=== PATIENT | female | born 1995 | race Hispanic/Latino ===

== ENCOUNTER 2017-09-25 09:19 | Emergency (ER) | payer SELFPAY ==
--- NOTE | 2017-09-25 10:11 | EDPHYS ---
Physician Documentation [facility] Name: Keesha Lambert Age: 22 yrs Sex: Female : 1995 Arrival Date: 09/25/2017 Time: 09:22 Bed 15 Private MD: ED Physician Alli Vasques HPI: 09/25 09:53 This 22 yrs old Female presents to ER via Ambulatory with complaints of snw Dizziness, Vomiting. 09:53 The patient presents with lightheadedness. Onset: The symptoms/episode began/occurred snw gradually, and became persistent. Context: occurred at home, occurred while the patient was randomly. just prior to the episode the patient experienced no apparent symptoms. Modifying factors: The symptoms are alleviated by nothing, the symptoms are aggravated by nausea and vomiting, position change. pt thinks she is . Associated signs and symptoms: Pertinent positives: vomiting. Severity of symptoms: At their worst the symptoms were moderate. The patient has not experienced similar symptoms in the past. The patient has not recently seen a physician. lmp 2 months ago. MARBLEIZER: 09:39 LMP 07/27/2017 lk1 09:40 0, Full Term 0, 0 lk1 Historical: - Allergies: 09:38 No Known Allergies; lk1 - PMHx: 09:38 None; lk1 - PSHx: 09:38 None; lk1 - Immunization history:: Adult Immunizations up to date. - Social history:: Smoking status: Patient/guardian denies using tobacco. ROS: 09:53 Eyes: Negative for injury, pain, redness, and discharge, ENT: Negative for injury, snw pain, and discharge, Neck: Negative for injury, pain, and swelling, Cardiovascular: Negative for chest pain, palpitations, and edema, Respiratory: Negative for shortness of breath, cough, wheezing, and pleuritic chest pain. 09:53 Back: Negative for injury and pain, : Negative for injury, bleeding, discharge, and swelling, MS/Extremity: Negative for injury and deformity, Skin: Negative for injury, rash, and discoloration. 09:53 Constitutional: Positive for body aches, malaise, poor PO intake. 09:53 Abdomen/GI: Positive for nausea and vomiting. 09:53 Neuro: Positive for dizziness. Exam: 09:56 Constitutional: This is a well developed, well nourished patient who is awake, alert, snw and in no acute distress. Head/Face: Normocephalic, atraumatic. Eyes: Pupils equal round and reactive to light, extra-ocular motions intact. Lids and lashes normal. Conjunctiva and sclera are non-icteric and not injected. Cornea within normal limits. Periorbital areas with no swelling, redness, or edema. ENT: Nares patent. No nasal discharge, no septal abnormalities noted. Tympanic membranes are normal and external auditory canals are clear. Oropharynx with no redness, swelling, or masses, exudates, or evidence of obstruction, uvula midline. Mucous membranes moist. Neck: Trachea midline, no thyromegaly or masses palpated, and no cervical lymphadenopathy. Supple, full range of motion without nuchal rigidity, or vertebral point tenderness. No Meningismus. Chest/axilla: Normal chest wall appearance and motion. Nontender with no deformity. No lesions are appreciated. Cardiovascular: Regular rate and rhythm with a normal S1 and S2. No gallops, murmurs, or rubs. Normal PMI, no JVD. No pulse deficits. Respiratory: Lungs have equal breath sounds bilaterally, clear to auscultation and percussion. No rales, rhonchi or wheezes noted. No increased work of breathing, no retractions or nasal flaring. 09:56 Back: No spinal tenderness. No costovertebral tenderness. Full range of motion. Skin: Warm, dry with normal turgor. Normal color with no rashes, no lesions, and no evidence of cellulitis. MS/ Extremity: Pulses equal, no cyanosis. Neurovascular intact. Full, normal range of motion. Psych: Awake, alert, with orientation to person, place and time. Behavior, mood, and affect are within normal limits. 09:56 Abdomen/GI: Inspection: abdomen appears normal, Bowel sounds: normal, Palpation: abdomen is soft and non-tender, in all quadrants. 09:56 Neuro: Orientation: no acute changes, Mentation: is normal, Memory: is normal, Cranial nerves: grossly normal, Cerebellar function: is grossly normal, Motor: is normal, seizure activity, is not displayed by the patient. Vital Signs: 09:39 BP 140 / 94; Pulse 78; Resp 14; Temp 98.0(TE); Pulse Ox 100% on R/A; Weight 56.25 kg lk1 (R); Height 4 ft. 11 in. (150 cm) (R); Pain 0/10; 09:39 Body Mass Index 25.00 (56.25 kg, 150 cm) lk1 MDM: 09:43 Patient medically screened. snw 10:11 Data reviewed: vital signs, nurses notes. Data interpreted: Pulse oximetry: on room air snw is 100 %. Interpretation: normal. Counseling: I had a detailed discussion with the patient and/or guardian regarding: the historical points, exam findings, and any diagnostic results supporting the discharge/admit diagnosis, the presence of at least one elevated blood pressure reading (>120/80) during this emergency department visit, the need for outpatient follow up, to return to the emergency department if symptoms worsen or persist or if there are any questions or concerns that arise at home. Special discussion: I have referred the patient to see his PCP for further evaluation of high blood pressure. Based on the history and exam findings, there is no indication for further emergent testing or inpatient evaluation. I discussed with the patient/guardian the need to see the OB Gyne specialist for further evaluation of the symptoms. I discussed with the patient/guardian the need to see the primary care provider for further evaluation of the symptoms. 09/25 09:43 Order name: Urine Culture snw 09/25 09:43 Order name: Urine Microscopic Only; Complete Time: 10:27 snw 09/25 09:43 Order name: Urine Test (obtain specimen); Complete Time: 09:48 snw 09/25 09:43 Order name: Urine Dipstick-Ancillary (obtain specimen); Complete Time: 09:48 snw 09/25 10:03 Order name: Urine Dipstick--Ancillary (enter results); Complete Time: 10:14 bd 09/25 10:03 Order name: Urine --Ancillary (enter results); Complete Time: 10:14 bd Administered Medications: No medications were administered Disposition: 09/26 07:48 Co-signature as Attending Physician, Alli Vasques MD Available for consultation at ps1 all times. . Disposition: 09/25/17 10:10 Discharged to Home. Impression: state. - Condition is Stable. - Discharge Instructions: Nausea and Vomiting, First Trimester of . - Medication Reconciliation Form, Thank You Letter, Antibiotic Education, Prescription Opioid Use form. - Follow up: Private Physician; When: 2 - 3 days; Reason: Recheck today's complaints, Continuance of care, Re-evaluation by your physician. Follow up: Emergency Department; When: As needed; Reason: Worsening of condition. Signatures: Dispatcher [employer] EDMS Desi Hall, DORIE POT PRESS OPERATOR-Jeraldw Chelsie Milligan RN RN Meme Sidhu RN RN lk1 Alli Vasques MD MD ps1
--- NOTE | 2017-09-25 10:11 | ER ---
Nurse's Notes [facility] Name: Keesha Lambert Age: 22 yrs Sex: Female : 1995 Arrival Date: 09/25/2017 Time: 09:22 Bed 15 Private MD: Diagnosis: state Presentation: 09/25 09:37 Presenting complaint: Friend states: "She has been dizzy and vomiting off and on. She lk1 hasn't had a period in 2 months and thinks she may be .". Transition of care: patient was not received from another setting of care. Onset of symptoms is unknown. Care prior to arrival: None. 09:37 Method Of Arrival: Ambulatory lk1 09:37 Acuity: BEBA 3 lk1 Triage Assessment: 09:39 General: Appears in no apparent distress. Behavior is calm, cooperative, appropriate lk1 for age. Pain: Denies pain. GI: Reports nausea, vomiting. 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 - Social history:: Smoking status: Patient/guardian denies using tobacco. Screenin:03 Abuse screen: Denies threats or abuse. Denies injuries from another. Nutritional ph screening: No deficits noted. Tuberculosis screening: No symptoms or risk factors identified. Fall Risk None identified. Assessment: 10:01 General: Appears in no apparent distress. comfortable, slender, well groomed, Behavior ph is calm, cooperative, appropriate for age, Denies fever. Pain: Denies pain. Neuro: Level of Consciousness is awake, alert, obeys commands, Oriented to person, place, time, situation, Reports dizziness. Cardiovascular: Capillary refill < 3 seconds Patient's skin is warm and dry. Respiratory: Airway is patent Respiratory effort is even, unlabored. GI: Abdomen is flat, non-distended, Bowel sounds present X 4 quads. Abd is soft and non tender X 4 quads. Reports nausea, vomiting, Patient currently denies abdominal pain, constipation, diarrhea. : Reports no menses x 2 months Patient is sexually active Method of control is none. Derm: Skin is intact, is healthy with good turgor, Skin is pink, warm \\T\\ dry. Musculoskeletal: Circulation, motion, and sensation intact. Range of motion: intact in all extremities. Vital Signs: 09:39 BP 140 / 94; Pulse 78; Resp 14; Temp 98.0(TE); Pulse Ox 100% on R/A; Weight 56.25 kg lk1 (R); Height 4 ft. 11 in. (150 cm) (R); Pain 0/10; 09:39 Body Mass Index 25.00 (56.25 kg, 150 cm) lk1 ED Course: 09:22 Patient arrived in ED. as 09:33 Desi Hall F[facility]-C [facility] snw 09:33 Alli Vasques MD is Attending Physician. snw 09:38 Triage completed. lk1 09:40 Arm band placed on right wrist. lk1 09:48 Chelsie Milligan, RN is Primary Nurse. ph 10:04 Patient has correct armband on for positive identification. Bed in low position. Call ph light in reach. Side rails up X 1. Pulse ox on. NIBP on. 10:05 Urine collected: clean catch specimen, nisha colored. ph 10:55 No provider procedures requiring assistance completed. Patient did not have IV access ph during this emergency room visit. Administered Medications: No medications were administered Outcome: 10:10 Discharge ordered by . snw 10:56 Patient left the ED. ph 10:56 Discharged to home ambulatory, with family. ph 10:56 Condition: good 10:56 Discharge instructions given to patient, family, Instructed on discharge instructions, follow up and referral plans. Demonstrated understanding of instructions, follow-up care. Signatures: Desi Hall FNP-C QUOTATION CHECKER-Rupal Peraza as Chelsie Milligan, RN RN Meme Sidhu RN RN lk1
[2017-09-25 10:12] LABS: Urine Blood TRACE (NEG); Urine Glucose NEGATIVE (NEG); Urine Protein TRACE (NEG); Urine Specific Gravity >1.030 (1.005-1.030)
[2017-09-25 10:25] LABS: Urine Bacteria 20-50 /HPF (<20); Urine Culture Reflex Order NOT NEEDED; Urine Mucus MOD /HPF (NONE SEEN); Urine RBC <5 /HPF (NONE SEEN)
== END 2017-09-25 10:56 | disposition home or self-care (01) ==
LOC: ER 09:19
DX: O26.891 Other specified pregnancy related conditions, first trimester (principal); Z3A.00 Weeks of gestation of pregnancy not specified
CPT/HCPCS: 81003; 81015; 81025; 87086; 87088; 99283

== ENCOUNTER 2021-01-21 02:48 | Emergency (ER) | payer SELFPAY ==
--- OUTSIDE RECORDS SUMMARY | 2021-01-21 02:51 | XMS REPORT | Continuity of Care Document ---
:1995 Author Organization Formerly [facility] t Address [address] [place] [address] Care Team Providers Name Role Phone Dustin BRADY, R Primary Care Physician Nurse, Pob Immunization Attending Clinician Unavailable Wyatt Farah DO Attending Clinician Visit, Nurse Attending Clinician Unavailable Larisa Prieto Attending Clinician Advance Directives Directive Decision Effective Termination Comments Source Date Date Healthcare Agents on N/A [facility] ersity FileNameRelationshipHealthcare [facility] Agent Medical RelationshipCommunicationCuster Regional Hospital Care [phone] (Mobile) Problems Condition Condition Condition Status Onset Resolution Last Treating Co mments Source Name Details Category Date Date Treatment Clinician Date Encounter Encounter Disease Active Uni vers for for 06-22 [place] 00 Medical management management Br anch , , unspecifie unspecifie d type d type BMI BMI Disease Active 2018- Univers 28.0-28.9, 28.0-28.9, -11 it y of adult adult 00:00: [address] Research Research Disease Resolve 2017-062019-08-23 2019-08-23 Univers study study d 0-30 00:00:00 19:52:46 ity of patient patient 00:00: [address] Disease Resolve 2017-062018-06-22 2018-06-22 [facility] care and care and d 2-03 00:00:00 21:49:59 it y of examin[place] examin[place] of [place] of 00 Medical lactating lactating Bran ch mother mother Elevated Elevated Disease Resolve 2017-062018-05-14 2018-05-14 Univers blood blood d 0-29 00:00:00 23:41:54 ity of pressure pressure 00:00: [place] reading reading 00 Medical without without Branch diagnosis diagnosis of of hypertensi hypertensi on on 35 weeks 35 weeks Disease Resolve 2017-062018-05-14 2018-05-14 Univers gestation gestation d 0-29 00:00:00 23:42:11 ity of of of 00:00: [place] 00 [facility] Branch Headache Headache Disease Resolve 2017-062018-05-14 2018-05-14 Univers in in d 0-29 00:00:00 23:41:59 [place] of , , [place] antepartum antepartum 00 Me dical , third , third Branch trimester trimester Preeclamps Preeclamps Disease Resolve 2017-062018-05-14 2018-05-14 Univers ia, third ia, third d 0-29 00:00:00 23:42:02 [place] S/P S/P Disease Resolve 2017-062018-05-14 2018-05-14 Univers d 0-29 00:00:00 23:42:04 it y of section section 00:00: [place] 00 Medical Branch Liveborn Liveborn Disease Resolve 2017-062018-05-14 2018-05-14 Univers infant, , d 0-29 00:00:00 23:42:07 ity of born in born in 00:00: [facility], [facility], 00 [facility] delivered delivered Bran ch by by Abnormal Abnormal Disease Resolve 2018-05-14 2018-05-14 Univers maternal maternal d 8-21 00:00:00 23:41:57 it y of glucose glucose 00:00: [place] tolerance, tolerance, 00 Me dical antepartum antepartum Br anch Supervisio Supervisio Disease Resolve 2018-05-14 2018-05-14 Univers n of n of d 6-18 00:00:00 23:41:51 ity of high-risk high-risk 00:00: Shantal ospina [facility] with with Branch insufficie insufficie nt nt care care Allergies, Adverse Reactions, Alerts This patient has no known allergies or adverse reactions. Social History Social Habit Start Date Stop Date Quantity Comments Source Tobacco use and 2020-02-10 2020-02-10 Never used Universit y of exposure 00:00:00 00:00:00 [facility] Alcohol intake 2020-02-10 2020-02-10 Current University 00:00:00 00:00:00 non-drinker of [facility] alcohol Branch (finding) Sex Assigned At [birth year] Universit y of 00:00:00 00:00:00 [facility] Smoking Status Start Date Stop Date Source Never smoker [facility] Medications This patient has no known medications. Immunizations Ordered Filled Immunization Date Status Comments Sourc e Immunization Name Name SARS-COV-2 COVID-19 2020-10-15 Completed Unive rsity of PFIZER VACCINE 00:00:00 [facility] HPV9 2018-10-18 Completed University of 00:00:00 [facility] HPV9 2018-05-14 Completed University 00:00:00 [facility] HPV9 2018-04-11 Completed University of 00:00:00 [facility] TDAP 2018-02-19 Completed University of 00:00:00 [facility] PPD (TB) 2017-11-27 Completed University 00:00:00 [facility] Procedures Procedure Date / Time Performed Performing Clinician Sour e SARS-COV-2 COVID-19 2020-10-15 21:37:03 Doctor Unassigned, No [facility] [place] VACCINE,0.3ML,IM Name [facility] Branch (PFIZER) Plan of Care Planned Activity Planned Date Details Comments Source Future Scheduled 2028-02-20 DTaP,Tdap,and Td Univers ity [facility] Test 00:00:00 Vaccines (2 - Td) Medical Br anch [code = DTaP,Tdap,and Td Vaccines (2 - Td)] Future Scheduled 2022-08-22 Screening for University [facility] Test 00:00:00 malignant neoplasm of Medica l Branch cervix (procedure) [code = 843661450] Future Scheduled 2021-02-10 [facility] (Season Ended) [code = Medic al Branch INFLUENZA VACCINE (Season Ended)] Future Scheduled 2020-11-05 [facility] Vaccine (2 - Pfizer Medical Branch 2-dose series) [code = SARS-CoV-2 (COVID-19) Vaccine (2 - Pfizer 2-dose series)] Future Scheduled 2020-08-22 Screening for [facility] Test 00:00:00 Chlamydia trachomatis Medica l Branch (procedure) [code = 111775697] Future Scheduled 2015-08-16 [facility]atitis [facility]00 (procedure) [code = Medical Branch [id number]] Future Scheduled 2009 Depression screening Uni versity [facility] Test 00:00:00 (procedure) [code = Medical Branch [id number]] Future Scheduled 2007-08-16 MENINGOCOCCAL B [facility] Test 00:00:00 VACCINES (1 of 2 - Medical B ranch Risk Bexsero 2-dose series) [code = MENINGOCOCCAL B VACCINES (1 of 2 - Risk Bexsero 2-dose series)] Encounters Start End Encounter Admission Attending Care Care Encounter Source Date/Time Date/Time Type Type Clinicians Facility Department ID 2020-02-10 2020-02-10 Nurse Visit, [facility] [id number] 15:47:53 16:13:[facility] NAT[facility] SCIENCES PROFESS[facility] [id number] Nurse [facility] [id number] MATERNAL [id number] & CHILD 107 [facility] 2019-11-15 2019-11-15 Nurse Visit, [facility] [id number] 15:09:03 15:39:03 [facility] SCIENCES PROFESSOR [id number] Nurse REGIONAL [id number] MATERNAL [id number] & CHILD 107 [facility] 2019-08-23 2019-08-23 Office Davide [facility] [id number] 14:30:00 14:58:02 Visit Kathi Peres NATURAL SCIENCES PROFESSOR [id number] REGIONAL [id number] MATERNAL [id number] & CHILD 107 [facility] Results This patient has no known results.
[2021-01-21] MEDS ORDERED: MORPHINE 2 MG/ML SYR ONE (03:36)
[2021-01-21] MEDS ORDERED: NA CHLORIDE 0.9% 1,000 ML ONE (03:36)
[2021-01-21] MEDS ORDERED: ONDANSETRON 4 MG/2 ML VIAL ONE (03:36)
--- NOTE | 2021-01-21 04:51 | ER ---
Nurse's Notes [facility] Name: Keesha Lambert Age: 25 yrs Sex: Female : 1995 Arrival Date: 01/21/2021 Time: 02:52 Bed 12 Private MD: Diagnosis: Migraine, unspecified, not intractable, without status migrainosus Presentation: 01/21 03:00 Chief complaint: Patient states: has had a headache since yesterday has history of bb migraines. Coronavirus screen: At this time, the client does not indicate any symptoms associated with coronavirus-19. Ebola Screen: No symptoms or risks identified at this time. Initial Sepsis Screen: Does the patient meet any 2 criteria? No. Patient's initial sepsis screen is negative. Does the patient have a suspected source of infection? No. Patient's initial sepsis screen is negative. Risk Assessment: Do you want to hurt yourself or someone else? Patient reports no desire to harm self or others. Onset of symptoms was January 20, 2021. 03:00 Method Of Arrival: Ambulatory bb 03:00 Acuity: BEBA 4 bb Triage Assessment: 03:31 Headache History: The patient has had previous headaches. General: Appears in no bb apparent distress. uncomfortable, Behavior is calm, cooperative. Pain: Complains of pain in top of head Pain currently is 10 out of 10 on a pain scale. Pain began 1 day ago. Also complains of nausea. Neuro: Level of Consciousness is awake, alert, obeys commands, Oriented to person, place, time, situation. Cardiovascular: Capillary refill < 3 seconds Patient's skin is warm and dry. Respiratory: Respiratory effort is even, unlabored. Derm: Skin is pink, warm \T\ dry. Musculoskeletal: Circulation, motion, and sensation intact. 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 - Social history:: Smoking status: Patient denies any tobacco usage or history of. Smoking status: unknown. - Family history:: not pertinent. - Hospitalizations: : No recent hospitalization is reported. Screenin:30 Abuse screen: Denies threats or abuse. Nutritional screening: No deficits noted. bb Tuberculosis screening: No symptoms or risk factors identified. Fall Risk None identified. Assessment: 03:30 Reassessment: No changes from previously documented assessment. Patient is alert, bb oriented x 3, equal unlabored respirations, skin warm/dry/pink. see triage assessment. 05:16 Reassessment: Patient is alert, oriented x 3, equal unlabored respirations, skin bb warm/dry/pink. pt states she is feeling better pain is now 1/10 pt and family verbalized understanding of and agree to plan of care discharge instructions given pt ambulated with steady gait to exit accompanied by family. Vital Signs: 03:06 BP 146 / 99; Pulse 78; Resp 20; Temp 98.1(O); Pulse Ox 100% on R/A; Weight 63.5 kg (R); mw2 Height 5 ft. 0 in. (152.40 cm); 05:17 BP 101 / 73; Pulse 52; Resp 14 S; Temp 97.4(TE); Pulse Ox 98% on R/A; Pain 1/10; bb 03:06 Body Mass Index 27.34 (63.50 kg, 152.40 cm) mw2 Oracio Coma Score: 04:49 Eye Response: spontaneous(4). Verbal Response: oriented(5). Motor Response: obeys rn commands(6). Total: 15. ED Course: 02:52 Patient arrived in ED. bp1 02:57 Tonio Pichardo MD is Attending Physician. rn 03:09 Richelle Guzman RN is Primary Nurse. bb 03:15 Inserted saline lock: 22 gauge in right antecubital area, using aseptic technique. bb 03:30 No provider procedures requiring assistance completed. bb 03:30 Patient has correct armband on for positive identification. Call light in reach. Side bb rails up X 1. Adult w/ patient. Pulse ox on. NIBP on. 03:31 Triage completed. bb 03:31 Arm band placed on Patient placed in an exam room, on a stretcher, on pulse oximetry. bb Family accompanied patient. 05:16 IV discontinued, intact, bleeding controlled, No redness/swelling at site. Pressure bb dressing applied. Administered Medications: 03:29 Drug: NS 0.9% 1000 ml Route: IV; Rate: 1000 ml; Site: right antecubital; bb 04:30 Follow up: IV Status: Completed infusion; IV Intake: 1000ml bb 03:29 Drug: morphine 2 mg Route: IVP; Site: right antecubital; bb 04:30 Follow up: Response: No adverse reaction; Pain is decreased bb 05:15 Follow up: Response: RASS: Alert and Calm (0) bb 03:29 Drug: Zofran (Ondansetron) 4 mg Route: IVP; Site: right antecubital; bb 04:30 Follow up: Response: No adverse reaction bb Intake: 04:30 IV: 1000ml; Total: 1000ml. bb Outcome: 04:50 Discharge ordered by . rn 05:18 Discharged to home ambulatory, with family. bb 05:18 Condition: stable 05:18 Discharge instructions given to patient, family, Instructed on discharge instructions, follow up and referral plans. Demonstrated understanding of instructions, follow-up care. 05:18 Patient left the ED. bb Signatures: Richelle Guzman RN RN bb Tonio Pichardo MD MD rn [place], MyKena mw2 Daya Hodges [facility] Corrections: (The following items were deleted from the chart) 03:11 03:06 BP 146 / 99; Pulse 78bpm; Resp 20bpm; Pulse Ox 100% RA; Temp 98.1F Oral; mw2 mw2 03:17 03:06 BP 146 / 99; Pulse 78bpm; Resp 20bpm; Pulse Ox 100% RA; Temp 98.1F Oral; 63.5 kg mw2 Reported; Height 5 ft. 3 in.; BMI: 24.8; mw2
--- NOTE | 2021-01-21 04:52 | EDPHYS ---
Physician Documentation [facility] Name: Keesha Lambert Age: 25 yrs Sex: Female : 1995 Arrival Date: 01/21/2021 Time: 02:52 Bed 12 Private MD: ED Physician Tonio Pichardo HPI: 01/21 03:26 This 25 yrs old Female presents to ER via Unassigned with complaints of rn Headache. 03:26 The patient complains of pain to the top of head and forehead. The patient describes rn the headache as aching. Onset: The symptoms/episode began/occurred yesterday. Associated signs and symptoms: Pertinent positives: nausea, vomiting, Pertinent negatives: altered mental status, fever, neck stiffness, rash, vision changes, vision loss, vertigo. Severity of symptoms: At its worst the pain was moderate, in the emergency department the pain is unchanged. The symptoms are alleviated by nothing. the symptoms are aggravated by lights, noise, stress. The patient has experienced similar episodes in the past, chronically. The patient has not recently seen a physician. Patient states has been having migraines since young age, diagnosed in [facility], used to be on medication but taken off. States had negative imaging of brain in [facility]. Reports gets frequent migraines, most of them improve with gbcg-biw-rgumalh medication, but every once in a while has to go to the emergency room when gets really bad. Reports currently 2 months and Tylenol is not helping at home. Reports other than severity of headache all the other aspects are identical to previous migraines. Denies focal neurological problems. Denies any abdominal pain/vaginal bleeding or discharge. 03:30 Headache History: The patient has had previous headaches and this one is similar to rn previous episodes. 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 - Social history:: Smoking status: Patient denies any tobacco usage or history of. Smoking status: unknown. - Family history:: not pertinent. - Hospitalizations: : No recent hospitalization is reported. ROS: 03:26 Constitutional: Negative for fever, chills, and weight loss, Eyes: Negative for injury, rn pain, redness, and discharge, Neck: Negative for injury, pain, and swelling, Cardiovascular: Negative for chest pain, palpitations, and edema, Respiratory: Negative for shortness of breath, cough, wheezing, and pleuritic chest pain, Abdomen/GI: Negative for abdominal pain, diarrhea, and constipation, Back: Negative for injury and pain, : Negative for injury, bleeding, discharge, and swelling, MS/Extremity: Negative for injury and deformity, Skin: Negative for injury, rash, and discoloration, Neuro: Negative for weakness, numbness, tingling, and seizure. 03:30 All other systems are negative. rn Exam: 03:26 Constitutional: This is a well developed, well nourished patient who is awake, alert, rn and in no acute distress. Ambulatory to room without assistance Head/Face: Normocephalic, atraumatic. Eyes: Periorbital areas with no swelling, redness, or edema. Neck: Trachea midline, no masses palpated, and no cervical lymphadenopathy. Supple, full range of motion without nuchal rigidity, or vertebral point tenderness. No Meningismus. Cardiovascular: Regular rate and rhythm. No pulse deficits. Respiratory: No increased work of breathing, no retractions or nasal flaring. Abdomen/GI: Soft, non-tender Skin: Warm, dry MS/ Extremity: Pulses equal, no cyanosis. Neuro: Awake and alert, GCS 15, oriented to person, place, time, and situation. Cranial nerves II-XII grossly intact. Motor strength 5/5 in all extremities. Sensory grossly intact. Cerebellar exam normal. Normal gait. Vital Signs: 03:06 BP 146 / 99; Pulse 78; Resp 20; Temp 98.1(O); Pulse Ox 100% on R/A; Weight 63.5 kg (R); mw2 Height 5 ft. 0 in. (152.40 cm); 05:17 BP 101 / 73; Pulse 52; Resp 14 S; Temp 97.4(TE); Pulse Ox 98% on R/A; Pain 1/10; bb 03:06 Body Mass Index 27.34 (63.50 kg, 152.40 cm) mw2 Crivitz Coma Score: 04:49 Eye Response: spontaneous(4). Verbal Response: oriented(5). Motor Response: obeys rn commands(6). Total: 15. MDM: 02:57 Patient medically screened. rn 04:49 Differential diagnosis: cluster headache, hypertensive headache, migraine, tension rn headache, vasomotor headache. Data reviewed: vital signs, nurses notes, and as a result, I will discharge patient. Counseling: I had a detailed discussion with the patient and/or guardian regarding: the historical points, exam findings, and any diagnostic results supporting the discharge/admit diagnosis, the need for outpatient follow up, to return to the emergency department if symptoms worsen or persist or if there are any questions or concerns that arise at home. Response to treatment: the patient's symptoms have markedly improved after treatment, and as a result, I will discharge patient. Special discussion: I discussed with the patient/guardian in detail that at this point there is no indication for admission to the hospital. It is understood, however, that if the symptoms persist or worsen the patient needs to return immediately for re-evaluation. ED course: Patient markedly improved, reports pain nearly gone. Blood pressure now down to 101 systolic. Recommend regular blood pressure checks given history of preeclampsia in the past with previous and close obstetric follow-up.. 01/21 03:07 Order name: IV Start; Complete Time: 03:29 rn Administered Medications: 03:29 Drug: NS 0.9% 1000 ml Route: IV; Rate: 1000 ml; Site: right antecubital; bb 04:30 Follow up: IV Status: Completed infusion; IV Intake: 1000ml bb 03:29 Drug: morphine 2 mg Route: IVP; Site: right antecubital; bb 04:30 Follow up: Response: No adverse reaction; Pain is decreased bb 05:15 Follow up: Response: RASS: Alert and Calm (0) bb 03:29 Drug: Zofran (Ondansetron) 4 mg Route: IVP; Site: right antecubital; bb 04:30 Follow up: Response: No adverse reaction bb Disposition Summary: 01/21/21 04:50 Discharge Ordered Location: Home rn Problem: new rn Symptoms: have improved rn Condition: Stable rn Diagnosis - Migraine, unspecified, not intractable, without status migrainosus rn Followup: rn - With: Private Physician - When: As needed - Reason: Recheck today's complaints, Re-evaluation by your physician Discharge Instructions: - Discharge Summary Sheet rn - Migraine Headache rn Forms: - Medication Reconciliation Form rn - Thank You Letter rn - Antibiotic paper pattern inspector - Work release form bb - Prescription Opioid Use rn Signatures: Richelle Guzman RN RN bb Tonio Pichardo MD MD rn wellness: (The following items were deleted from the chart) 03:28 03:26 Patient states has been having migraines since young age, diagnosed in [facility], used to be on medication but taken off. States had negative imaging of brain in [facility]. Reports gets frequent migraines, most of them improve with oigk-ota-woxzrna medication, but every once in a while has to go to the emergency room when gets really bad. Reports currently 2 months and Tylenol is not helping at home. Reports other than severity of headache all the other aspects are identical to previous migraines. Denies focal neurological problems.. rn
[2021-01-21 05:30] VITALS: BP 101/73; TEMP 97.4; O2SAT 98
== END 2021-01-21 05:18 | disposition home or self-care (01) ==
LOC: ER 02:48
DX: O26.891 Other specified pregnancy related conditions, first trimester (principal); Z3A.08 8 weeks gestation of pregnancy
CPT/HCPCS: 96361; 96374; 96375; 99283; J2270; J2405; J7030

== ENCOUNTER 2021-08-16 19:27 | Emergency (ER) | payer OTHER, SELFPAY ==
--- OUTSIDE RECORDS SUMMARY | 2021-08-16 19:29 | XMS REPORT | Continuity of Care Document ---
:1995 Author Organization [facility] t Address [address] [place] [address] Care Team Providers Name Role Phone Dustin BRADY, R Primary Care Physician Dustin BRADY, R Attending Clinician AKINSIPE, C Attending Clinician Unavailable Nurse, Pob Immunization Attending Clinician Unavailable Wyatt Farah DO Attending Clinician Visit, Nurse Attending Clinician Unavailable Davide BRADY, Larisa Attending Clinician Payers Payer Name Policy Type Policy Number Effective Date Expiration Date S ource Advance Directives Directive Decision Effective Termination Comments Source Date Date Healthcare Agents on N/A [facility] FileNameRelationsh[facility] St[facility] Cent[facility]alth[facility] Agent Medical RelationshipCommunicationMountain View Regional Medical CenterelativeV[facility] Care [phone] (Mobile) Problems Condition Condition Condition Status Onset Resolution Last Treating Co mments Source Name Details Category Date Date Treatment Clinician Date Supervisio Supervisio Disease Active 2020-06 U nivers n of high n of high 2-15 ity of risk risk 00:00: [place] 00 Medi urban in second in second Bran ch trimester trimester Multiparit Multiparit Disease Active U nivers y y 8-24 ity of 00:00: [place] 00 Medical Branch History of History of Disease Active Overview : Univers 8-24 Formattin ity of section section 00:00: g of this [place] note Medical might be Branch different from the original. See chart review History of History of Disease Active U nivers pre-eclamp pre-eclamp 8-24 it y of claudia claudia 00:00: [place] 00 Medical Branch History of History of Disease Active Overview : Univers pre-term pre-term 8-24 Formattin ity of labor labor 00:00: g of this [place] 00 note Medical might be Branch different from the original. Due to preeclamp claudia at 35 weeks with severe features See chart review Desires Desires Disease Active Univers 824 ity of (vaginal (vaginal 00:00: [place] 00 Medical after after Branch ) ) trial trial Encounter Encounter Disease Active Uni vers for for 1-11 ity of contracept contracept 00:00: [place] 00 Medical management management Br anch , , unspecifie unspecifie d type d type BMI BMI Disease Active [facility] 28.0-28.9, 28.0-28.9, 1-11 it y of adult adult 00:00: [place] 00 [facility] Research Research Disease Resolve 2017-062019-08-23 2019-08-23 [facility] study study d 0-30 00:00:00 19:52:46 ity of patient patient 00:00: [place] 00 [facility] Disease Resolve 2017-062018-06-22 2018-06-22 [facility] care and care and d 2-03 00:00:00 21:49:59 it y of examinatio examinatio 00:00: [place] of n of 00 Medical lactating lactating Bran ch mother mother Elevated Elevated Disease Resolve 2017-062018-05-14 2018-05-14 [facility] blood blood d 0-29 00:00:00 23:41:54 ity of pressure pressure 00:00: [place] reading reading 00 Medical without without Branch diagnosis diagnosis of of hypertensi hypertensi on on 35 weeks 35 weeks Disease Resolve 2017-062018-05-14 2018-05-14 Univers gestation gestation d 0-29 00:00:00 23:42:11 ity of of of 00:00: [place] 00 Medi urban Branch Headache Headache Disease Resolve 2017-062018-05-14 2018-05-14 Univers in in d 0-29 00:00:00 23:41:59 [place] , [place] ante[place] antepartum 00 Me dical , third , third Branch trimester trimester Preeclamps Preeclamps Disease Resolve 2017-062018-05-14 2018-05-14 Univers ia, third ia, third d 0-29 00:00:00 23:42:02 [place] of [place] [facility] S/P S/P Disease Resolve 2017-062018-05-14 2018-05-14 Univers d 0-29 00:00:00 23:42:04 it y of section section 00:00: [place] [address] [place] [address] Liveborn Liveborn Disease Resolve 2017-062018-05-14 2018-05-14 Univers , , d 0-29 00:00:00 23:42:07 ity of born in born in 00:00: [facility], 00 [facility] delivered delivered Bran ch by by Abnormal Abnormal Disease Resolve 2018-05-14 2018-05-14 Univers maternal maternal d 8-21 00:00:00 23:41:57 it y of glucose glucose 00:00: [place] tolerance, tolerance, 00 Me dical antepartum antepartum Br anch Supervisio Supervisio Disease Resolve 2018-05-14 2018-05-14 Univers n of n of d 6-18 00:00:00 23:41:51 ity of high-risk high-risk [place] [facility] with with Branch insufficie insufficie nt nt care care Allergies, Adverse Reactions, Alerts Allergy Allergy Status Severity Reaction(s) Onset Inactive Treating Comm ents Source Name Type Date Date Clinician NO KNOWN Drug Active Univers ALLERGIE Class ity of S [facility] [place] [facility] Social History Social Habit Start Date Stop Date Quantity Comments Source ASSERTION 2020-12-12 University of 00:00:00 [facility] [place] [facility] Exposure to Not sure University SARS-CoV-2 [facility] (event) Branch Alcohol intake 2021-08-11 2021-08-11 Current University of 00:00:00 00:00:00 non-drinker of [facility] alcohol Branch (finding) Tobacco use and 2017-11-27 2017-11-27 Never used Universit y of exposure 00:00:00 00:00:00 [facility] [place] [facility] Sex Assigned At [birth year] Universit y of 00:00:00 00:00:00 [facility] [place] [facility] Smoking Status Start Date Stop Date Source Never smoker [facility] Medications Ordered Filled Start Stop Current Ordering Indication Dosage Frequency Signature Comments Components Source Medication Medication Date Date Medication? Clinician (SIG) Name Name No known No Univers medications 3-03 ity of 16:45: [place] 57 [facility] Branch Immunizations Ordered Filled Immunization Date Status Comments Tamara bhavana Immunization Name Name TDAP 2021-06-17 Completed University of 00:00:00 [facility] [place] [facility] SARS-COV-2 COVID-19 2020-11-04 Completed Unive rsity of PFIZER VACCINE 00:00:[address] [facility] SARS-COV-2 COVID-19 2020-10-15 Completed Unive rsity of PFIZER VACCINE 00:00:[address] [facility] SARS-COV-2 COVID-19 2020-10-15 Completed Unive rsity of PFIZER VACCINE 00:00:[address] [facility] HPV9 2018-10-18 Completed University of 00:00:00 [facility] [place] [facility] HPV9 2018-10-18 Completed University of 00:00:00 [facility] [place] [facility] HPV9 2018-05-14 Completed University of 00:00:00 [facility] [place] [facility] HPV9 2018-05-14 Completed University of 00:00:00 [facility] [place] [facility] HPV9 2018-04-11 Completed University of 00:00:00 [facility] [place] [facility] HPV9 2018-04-11 Completed University of 00:00:00 [facility] [place] [facility] TDAP 2018-02-19 Completed University of 00:00:00 [facility] [place] [facility] TDAP 2018-02-19 Completed University of 00:00:00 [facility] [place] [facility] PPD (TB) 2017-11-27 Completed University of 00:00:00 [facility] [place] [facility] PPD (TB) 2017-11-27 Completed University of 00:00:00 [facility] [place] [facility] Procedures Procedure Date / Time Performed Performing Clinician Parag bateman SARS-COV-2 COVID-19 2020-10-15 21:37:03 Doctor Unassigned, No Un iversity of [place] VACCINE,0.3ML,IM Name [facility] Branch (PFIZER) Plan of Care Planned Activity Planned Date Details Comments Source Future Scheduled 2028-02-20 DTaP,Tdap,and Td Univers ity [place] Test 00:00:00 Vaccines (2 - Td) Medical Br anch [code = DTaP,Tdap,and Td Vaccines (2 - Td)] Future Scheduled 2022-08-22 Screening for [facility] Test 00:00:00 malignant neoplasm of Medica l Branch cervix (procedure) [code = 425868297] Future Scheduled 2021-02-10 INFLUENZA VACCINE Univer [facility] Test 00:00:00 (Season Ended) [code = Medic al Branch INFLUENZA VACCINE (Season Ended)] Future Scheduled 2020-11-05 SARS-[facility]COVID-19) [facility] Vaccine (2 - Pfizer Medical Branch 2-dose series) [code = SARS-CoV-2 (COVID-19) Vaccine (2 - Pfizer 2-dose series)] Future Scheduled 2020-08-22 Screening for [facility] Test 00:00:00 Chlamydia trachomatis Medica l Branch (procedure) [code = 690549421] Future Scheduled 2015-08-16 Hepatitis [facility] 00:00:00 (procedure) [code = Medical Branch [id number]] Future Scheduled 2009 Depression screening Uni [facility] Test 00:00:00 (procedure) [code = Medical Branch [id number]] Future Scheduled 2007-08-16 MENINGOCOCCAL B Universi [facility] Test 00:00:00 VACCINES (1 of 2 - Medical B ranch Risk Bexsero 2-dose series) [code = MENINGOCOCCAL B VACCINES (1 of 2 - Risk Bexsero 2-dose series)] Encounters Start End Encounter Admission Attending Care Care Encounter Source Date/Time Date/Time Type Type Clinicians Facility Department ID 2021-08-13 2021-08-[address] [facility] [id number] Univers 00:00:00 00:00:00 Bryan R METAL HANGER [id number] ity [facility] [id number] [place] as MATERNAL [id number] Med ical & CHILD [address] [place] [address] 2021-08-11 2021-08-11 Outpatient R CHINMAY [facility] [id number] Univers 15:30:00 16:16:36 ROSA mckinney [facility] [place] [facility] 2020-02-10 2020-02-10 Nurse Visit, [facility] [id number] 15:47:53 16:13:47 [facility] [id number] Nurse [facility] [id number] MATERNAL [id number] & CHILD 107 [facility] 2019-11-15 2019-11-15 Nurse Visit, [facility] [id number] 15:09:03 15:39:[facility] [id number] [facility] [id number] MATERNAL [id number] & CHILD 107 [facility] 2019-08-23 2019-08-[address] [facility] [id number] 14:30:00 14:58:02 Visit Kathi Peres METAL HANGER [id number] [facility] [id number] MATERNAL [id number] & CHILD 107 [facility] Results This patient has no known results.
[2021-08-16 20:23] LABS: Urine Blood Negative (Negative); Urine Glucose Trace (Negative); Urine Protein 1+ (Negative); Urine Specific Gravity >=1.030 (1.005-1.030); Urine pH 6.5 (5.0-7.0)
[2021-08-16] MEDS ORDERED: DIPHENHYDRAMINE 50 MG/ML VIAL ONE (20:27)
[2021-08-16] MEDS ORDERED: NA CHLORIDE 0.9% 500 ML ONE (20:27)
[2021-08-16] MEDS ORDERED: METOCLOPRAMIDE 10 MG/2mL INJ ONE (20:27)
--- NOTE | 2021-08-16 21:40 | EDPHYS ---
Physician Documentation [facility] Name: Keesha Lambert Age: 26 yrs Sex: Female : 1995 Arrival Date: 08/16/2021 Time: 19:32 Bed 18 Private MD: ED Physician Nir Day HPI: 08/16 20:07 This 26 yrs old Female presents to ER via Ambulatory with complaints of jmm Headache. 20:07 The patient complains of pain to the right restoration and left restoration. Onset: The jmm symptoms/episode began/occurred gradually, today. Associated signs and symptoms: Pertinent positives: nausea. The patient has experienced a previous episode. Is a 26-year-old female approximately 37 weeks IUP the presents emerged part with complaints of left-sided headache which radiates to the right past afternoon at 3 PM. Patient states having 1 previous episode approximately 2 years ago. Complaining of some nausea and vomiting. Denies any vaginal bleeding or abdominal pain. Took 2 Tylenol without relief. POWER LINE LINEMAN: 20:51 Verified kd3 Historical: - Allergies: 19:48 No Known Allergies; ab2 - Home Meds: 19:48 Vitamin Oral [Active]; ab2 - PMHx: 19:48 None; ab2 - PSHx: 19:48 section; ab2 - Immunization history:: Adult Immunizations up to date. - Social history:: Smoking status: Patient denies any tobacco usage or history of. ROS: 20:07 Constitutional: Negative for fever, chills, and weight loss, Cardiovascular: Negative jmm for chest pain, palpitations, and edema, Respiratory: Negative for shortness of breath, cough, wheezing, and pleuritic chest pain. 20:07 Abdomen/GI: Positive for vomiting. 20:07 Neuro: Positive for headache. 20:07 All other systems are negative. Exam: 20:07 Head/Face: atraumatic. Eyes: EOMI, no conjunctival erythema appreciated ENT: Moist jmm Mucus Membranes Neck: Trachea midline, Supple Chest/axilla: Normal chest wall appearance and motion. Cardiovascular: Regular rate and rhythm. No edema appreciated Respiratory: Normal respirations, no respiratory distress appreciated Abdomen/GI: Non distended, soft Back: Normal ROM Skin: General appearance color normal MS/ Extremity: Moves all extremities, no obvious deformities appreciated, no edema noted to the lower extremities Neuro: Awake and alert Psych: Behavior is normal, Mood is normal, Patient is cooperative and pleasant 20:07 Constitutional: The patient appears alert, awake, anxious. Vital Signs: 19:44 BP 140 / 87; Pulse 69; Resp 16; Temp 98.3(TE); Pulse Ox 100% on R/A; Weight 68.04 kg; ab2 Height 5 ft. 0 in. (152.40 cm); Pain 10/10; 20:00 BP 142 / 77; kd3 20:11 Pulse Ox 98.4% ; kd3 21:16 BP 124 / 68; Pulse 82; Resp 16; Pulse Ox 100% on R/A; kd3 19:44 Body Mass Index 29.29 (68.04 kg, 152.40 cm) ab2 MDM: 20:10 Patient medically screened. [facility] 21:36 Data reviewed: vital signs, nurses notes. Counseling: I had a detailed discussion with [facility] the patient and/or guardian regarding: the historical points, exam findings, and any diagnostic results supporting the discharge/admit diagnosis, the need for outpatient follow up, to return to the emergency department if symptoms worsen or persist or if there are any questions or concerns that arise at home. ED course: Pain is relieved in the ED. Vital signs are within normal limits after headache was relieved. Urine did show 1+ protein. I do not currently suspect preeclampsia at this time. Patient advised to closely follow-up with her POWER LINE LINEMAN for further evaluation 1 to 2 days and otherwise given strict return precautions. Patient understood agrees plan of care.. 08/16 20:22 Order name: Urine Dipstick-Ancillary; Complete Time: 20:23 EDRI 08/16 20:07 Order name: Urine Dipstick-Ancillary (obtain specimen); Complete Time: 20:50 [facility] 08/16 20:07 Order name: Saline Lock; Complete Time: 20:50 [facility] Administered Medications: 20: CANCELLED (Duplicate Order): Reglan (metoCLOPramide) 20 mg IVP once; over 15 mins [facility] 20:49 Drug: Reglan (metoCLOPramide) 20 mg Route: IVP; Site: left antecubital; kd3 21:58 Follow up: Response: No adverse reaction kd3 20:49 Drug: diphenhydrAMINE 12.5 mg Route: IVP; Site: right antecubital; kd3 21:58 Follow up: Response: No adverse reaction kd3 20:50 Drug: NS 0.9% 500 ml Route: IV; Rate: bolus; Site: right antecubital; kd3 21:58 Follow up: Response: No adverse reaction; IV Status: Completed infusion kd3 Disposition: 22:49 Co-signature as Attending Physician, Nir Day MD I agree with the assessment and kdr plan of care. Disposition Summary: 08/16/21 21:39 Discharge Ordered Location: Home jm Condition: Stable jmm Diagnosis - Migraine without aura, not intractable jmm Followup: jmm - With: Private Physician - When: 1 - 2 days - Reason: Recheck today's complaints, Continuance of care, Re-evaluation by your physician Discharge Instructions: - Discharge Summary Sheet jmm - Migraine Headache [facility] Forms: - Medication Reconciliation Form [facility] - Thank You Letter jm - Antibiotic Education jm - Prescription Opioid Use [facility] - Work release form kd3 Signatures: Dispatcher [employer] EDNir Flynn MD MD [facility] Wally Spain PA PA jmm Doucette, Kyli RN RN kd3 Alfonso Hahn2 Corrections: (The following items were deleted from the chart) 20:07 20:07 Reglan (metoCLOPramide) 20 mg IVP once; over 15 mins ordered. [facility]
--- NOTE | 2021-08-16 21:40 | ER ---
Nurse's Notes [facility] Name: Keesha Lambert Age: 26 yrs Sex: Female : 1995 Arrival Date: 08/16/2021 Time: 19:32 Bed 18 Private MD: Diagnosis: Migraine without aura, not intractable Presentation: 08/16 19:44 Chief complaint: Spouse and/or significant other states: "She was working a got a ab2 headache around 3pm. She took 2 tylenol but it didn't help." Pt is 37 weeks , due 08-30-2021. Pt c/o N/V. Coronavirus screen: Vaccine status: Patient reports receiving the 2nd dose of the covid vaccine. Client denies travel out of the [place] in the last 14 days. At this time, the client does not indicate any symptoms associated with coronavirus-19. Ebola Screen: Patient negative for fever greater than or equal to 101.5 degrees Fahrenheit, and additional compatible Ebola Virus Disease symptoms Patient denies exposure to infectious person. Patient denies travel to an Ebola-affected area in the 21 days before illness onset. No symptoms or risks identified at this time. Initial Sepsis Screen: Does the patient meet any 2 criteria? No. Patient's initial sepsis screen is negative. Does the patient have a suspected source of infection? No. Patient's initial sepsis screen is negative. Risk Assessment: Do you want to hurt yourself or someone else? Patient reports no desire to harm self or others. Onset of symptoms is unknown. 19:44 Method Of Arrival: Ambulatory ab2 19:50 Acuity: BEBA 3 ab2 Triage Assessment: 19:49 Headache History: The patient has had previous headaches. Headache History: The patient ab2 has had previous headaches and this one is different than previous episodes, and this one is more severe than previous episodes. General: Appears in no apparent distress. uncomfortable, Behavior is calm, cooperative, appropriate for age. Pain: Complains of pain in head Pain currently is 10 out of 10 on a pain scale. Pain began 4 hours ago. Also complains of inability to work. Neuro: Reports headache. [employer]: 20:51 Verified kd3 Historical: - Allergies: 19:48 No Known Allergies; ab2 - Home Meds: 19:48 Vitamin Oral [Active]; ab2 - PMHx: 19:48 None; ab2 - PSHx: 19:48 section; ab2 - Immunization history:: Adult Immunizations up to date. - Social history:: Smoking status: Patient denies any tobacco usage or history of. Screenin:01 Abuse screen: Denies threats or abuse. Denies injuries from another. Nutritional kd3 screening: No deficits noted. Tuberculosis screening: No symptoms or risk factors identified. Fall Risk None identified. Assessment: 20:00 General: Appears in no apparent distress. Behavior is calm, cooperative, appropriate kd3 for age. Pain: Complains of pain in head Pain currently is 10 out of 10 on a pain scale. Neuro: Level of Consciousness is awake, alert, obeys commands, Oriented to person, place, time, situation. Respiratory: Airway is patent Respiratory effort is even, unlabored. 21:16 Reassessment: Patient and/or family updated on plan of care and expected duration. Pain kd3 level reassessed. Patient is alert, oriented x 3, equal unlabored respirations, skin warm/dry/pink. Vital Signs: 19:44 BP 140 / 87; Pulse 69; Resp 16; Temp 98.3(TE); Pulse Ox 100% on R/A; Weight 68.04 kg; ab2 Height 5 ft. 0 in. (152.40 cm); Pain 10/10; 20:00 BP 142 / 77; kd3 20:11 Pulse Ox 98.4% ; kd3 21:16 BP 124 / 68; Pulse 82; Resp 16; Pulse Ox 100% on R/A; kd3 19:44 Body Mass Index 29.29 (68.04 kg, 152.40 cm) ab2 ED Course: 19:32 Patient arrived in ED. es 19:48 Triage completed. ab2 19:50 Arm band placed on right wrist. ab2 19:55 Wally Spain PA is PHCP. [facility] 19:55 Nir Day MD is Attending Physician. [facility] 19:57 Claudia Patel RN is Primary Nurse. kd3 20:01 Patient has correct armband on for positive identification. Bed in low position. Call kd3 light in reach. Side rails up X 1. 20:50 Inserted saline lock: 22 gauge in right antecubital area, using aseptic technique. kd3 21:57 No provider procedures requiring assistance completed. IV discontinued, intact, kd3 bleeding controlled, No redness/swelling at site. Pressure dressing applied. Administered Medications: 20:07 CANCELLED (Duplicate Order): Reglan (metoCLOPramide) 20 mg IVP once; over 15 mins [facility] 20:49 Drug: Reglan (metoCLOPramide) 20 mg Route: IVP; Site: left antecubital; kd3 21:58 Follow up: Response: No adverse reaction kd3 20:49 Drug: diphenhydrAMINE 12.5 mg Route: IVP; Site: right antecubital; kd3 21:58 Follow up: Response: No adverse reaction kd3 20:50 Drug: NS 0.9% 500 ml Route: IV; Rate: bolus; Site: right antecubital; kd3 21:58 Follow up: Response: No adverse reaction; IV Status: Completed infusion kd3 Outcome: 21:39 Discharge ordered by . [facility] 21:57 Discharged to home ambulatory. kd3 21:57 Condition: stable 21:57 Instructed on discharge instructions, follow up and referral plans. 21:59 Patient left the ED. kd3 Signatures: Wally Spain PA PA [facility] Dianelys Atkins Kyli RN RN kd3 Alfonso Hahn ab2 Corrections: (The following items were deleted from the chart) 19:51 19:44 Chief complaint: Spouse and/or significant other states: "She was working a got a ab2 headache around 3pm. She took 2 tylenol but it didn't help." Pt is 37 weeks , due 08-30-2021. ab2 19:51 19:44 Acuity: BEBA 4 ab2 ab2
[2021-08-16 23:12] VITALS: TEMP 98.3; O2SAT 100
[2021-08-16 23:15] VITALS: BP 124/68
== END 2021-08-16 21:59 | disposition home or self-care (01) ==
LOC: ER 19:27
DX: O26.893 Other specified pregnancy related conditions, third trimester (principal); G43.009 Migraine without aura, not intractable, without status migrainosus; Z3A.37 37 weeks gestation of pregnancy
CPT/HCPCS: 81003; J2765; J1200; J7040; 99283